=== PATIENT | male | born 1980 | race Caucasian/White ===

== ENCOUNTER 2017-01-17 06:55 | Day surgery (SDC) | payer MEDICAID ==
[~2017-01-17] VITALS: Ht 182.9 cm; Wt 88.5 kg
[2017-01-17] MEDS ORDERED: CYCLOPENTOLATE HCL 1% OPHTH DROPS 2ML RIGHTEYE ONE (07:45)
[2017-01-17] MEDS ORDERED: PHENYLEPHRINE HCL 10% OPHTH DROPS 5ML RIGHTEYE ONE (07:45)
[2017-01-17] MEDS ORDERED: TETRACAINE 0.5% OPHTH DROPS 4ML ONE (08:06)
[2017-01-17] MEDS ORDERED: CYCLOPENTOLATE HCL 1% OPHTH DROPS 2ML ONE (08:06)
[2017-01-17] MEDS ORDERED: LIDOCAINE HCL/PF 2% 20 MG/ML 10ML VIAL ONE (08:06)
[2017-01-17] MEDS ORDERED: BALANCED SALT IRRIG SOLN 15ML ONE (08:06)
[2017-01-17] MEDS ORDERED: PHENYLEPHRINE HCL 10% OPHTH DROPS 5ML ONE (08:06)
[2017-01-17] MEDS ORDERED: PREDNISOLONE ACETATE 1% OPHTH DROPS 1ML ONE (08:06)
[2017-01-17] MEDS ORDERED: TROPICAMIDE 1% OPHTH DROPS 15ML ONE (08:06)
[2017-01-17] MEDS ORDERED: CIPROFLOXACIN 0.3% OPHTH SOLN 2.5ML ONE (08:06)
[2017-01-17] MEDS ORDERED: NEO/POLYMYX B SULF/DEXAMETH OPHTH OINT 3.5GM ONE (08:06)
[2017-01-17] MEDS ORDERED: BALANCED SALT IRRIG SOLN COMB1 500ML OP ONE (08:10)
[2017-01-17] MEDS: SODIUM CHLORIDE 0.9% 1,000 ML IV SCH ×2 (08:22→09:17)
[2017-01-17] MEDS ORDERED: HYALURONATE SODIUM 14 MG/ML 0.85ML SYRINGE IO ONE ×2 (09:05→09:06)
[2017-01-17] MEDS ORDERED: TROPICAMIDE 1% OPHTH DROPS 15ML RIGHTEYE ONE (09:15)
[2017-01-17] MEDS ORDERED: HUMULOG SUBCUT ×3 (09:27)
[2017-01-17] MEDS ORDERED: INSU3INS6 SUBCUT (09:27)
[2017-01-17] MEDS ORDERED: ONDANSETRON HCL 4MG/2ML VIAL IV PRN (09:30)
[2017-01-17] MEDS ORDERED: FENTANYL CITRATE/PF 50MCG/ML 2ML VIAL IV PRN (09:30)
== END 2017-01-17 12:15 | disposition home or self-care (01) ==
LOC: OR 06:55
PROVIDERS: ATTEND Ophthalmology
DX: H25.89 Other age-related cataract (principal); E10.69 Type 1 diabetes mellitus with other specified complication
CPT/HCPCS: 66984; 82962; J3490; J7030; V2632

== ENCOUNTER 2017-06-07 08:58 | Inpatient (IN) | payer MEDICAID ==
[~2017-06-07] VITALS: Ht 182.9 cm; Wt 81.6 kg
[~2017-06-07 08:58] MED LIST: HUMULOG SUBCUT; INSU3INS6 SUBCUT
[2017-06-07] MEDS ORDERED: INSULIN REGULAR (HUMULIN R) UD 100 UNITS/ML SYR SUBCUT ONE (10:00)
[2017-06-07] MEDS ORDERED: SODIUM CHLORIDE 0.9% 1,000 ML IV SCH (10:15)
[2017-06-07] MEDS ORDERED: INSU100I24 SQ (11:39)
[2017-06-07] MEDS ORDERED: CLONIDINE 0.1MG TABLET PO PRN (11:45)
[2017-06-07] MEDS ORDERED: DEXTROSE 50% WATER 50ML SYRINGE IV PRN (11:45)
[2017-06-07] MEDS ORDERED: HYDROCODONE/ACETAMINOPHEN 5/325MG TABLET PO PRN (11:45)
[2017-06-07] MEDS ORDERED: DIPHENHYDRAMINE 50MG/ML VIAL IV PRN (11:45)
[2017-06-07] MEDS ORDERED: ACETAMINOPHEN 325MG TABLET PO PRN (11:45)
[2017-06-07] MEDS ORDERED: ONDANSETRON HCL 4MG/2ML VIAL IV PRN (11:45)
[2017-06-07] MEDS ORDERED: IPRATROPIUM/ALBUTEROL 0.5-3(2.5)MG/3ML NEB INH PRN (11:45)
[2017-06-07 14:16] VITALS: BP 117/77
[2017-06-07] MEDS: SODIUM CHLORIDE 0.9% 1,000 ML IV SCH (16:43)
[2017-06-07] MEDS ORDERED: INSULIN LISPRO 100 UNITS/ML SUBCUT SCH ×2 (17:40)
[2017-06-07] MEDS: INSULIN LISPRO 100 UNITS/ML SUBCUT SCH ×2 (17:40→22:19)
[2017-06-07] MEDS: BLOOD SUGAR DIAGNOSTIC STRIP TEST SCH ×2 (17:48→21:00)
[2017-06-07 20:00] VITALS: BP 117/68
[2017-06-07] MEDS ORDERED: INSULIN DETEMIR UD 100 UNITS/ML SYR SUBCUT SCH (22:00)
[2017-06-08] VITALS: BP 117/75
[2017-06-08 04:00] VITALS: BP 136/73
[2017-06-08 06:09] LABS: BASOPHILS % 1.6 % (0.0-2.0); EOSINOPHILS % 4.5 % (0.0-5.0); HEMATOCRIT. 36.5 % (42.0-52.0); HEMOGLOBIN. 12.5 g/dL (14.0-18.0); LYMPHOCYTES % 45.6 % (20.0-50.0); MEAN CORPUSCULAR HEMOGLOBIN 30.4 pg (28.0-32.0); MEAN CORPUSCULAR VOLUME 88.8 fL (80.0-94.0); MONOCYTES % 8.5 % (2.0-8.0); NEUTROPHILS % 39.8 % (40.0-76.0); PLATELET 166 x1000/uL (130-400); RED BLOOD CELL COUNT 4.11 mill/uL (4.7-6.1); RED CELL DISTRIBUTION WIDTH 12.9 % (11.6-14.6)
[2017-06-08] MEDS: SODIUM CHLORIDE 0.9% 1,000 ML IV SCH ×2 (06:34→17:20)
[2017-06-08] MEDS: BLOOD SUGAR DIAGNOSTIC STRIP TEST SCH ×4 (06:38→21:33)
[2017-06-08] MEDS: INSULIN LISPRO 100 UNITS/ML SUBCUT SCH ×4 (06:46→21:47)
[2017-06-08 07:38] LABS: CHLORIDE 104 mEq/L (98-107); HDL CHOLESTEROL 41 mg/dL (40-59); LDL CHOLESTEROL 70 mg/dL (5-100)
[2017-06-08 07:39] LABS: CARBON DIOXIDE 27 mEq/L (21-32)
[2017-06-08 08:00] VITALS: BP 117/69
[2017-06-08 12:00] VITALS: BP 114/70
[2017-06-08] MEDS ORDERED: DEXAMETHASONE 4MG/ML 1ML VIAL ONE ×2 (12:58→14:16)
[2017-06-08] MEDS ORDERED: LIDOCAINE HCL 1% 20ML VIAL (Pyxis) INJ ONE (12:58)
[2017-06-08] MEDS ORDERED: BUPIVACAINE HCL 0.5% (5MG/ML) 50ML ONE (12:59)
[2017-06-08] MEDS ORDERED: NORMAL SALINE 0.9% 10 ML SYR ONE (12:59)
[2017-06-08] MEDS ORDERED: BACITRACIN 50,000 UNITS/VIAL ONE (12:59)
[2017-06-08] MEDS ORDERED: LEVOFLOXACIN 500MG PREMIX 100 ML IV ONE (14:16)
[2017-06-08] MEDS ORDERED: METOCLOPRAMIDE HCL 10MG/2ML VIAL ONE (14:16)
[2017-06-08] MEDS ORDERED: ONDANSETRON HCL 4MG/2ML VIAL IV PRN (14:30)
[2017-06-08] MEDS ORDERED: MEPERIDINE HCL/PF 25MG/ML CPJ IV PRN (14:30)
[2017-06-08] MEDS ORDERED: LABETALOL HCL 20MG/4ML CARPUJECT IV PRN (14:30)
[2017-06-08] MEDS ORDERED: HYDROMORPHONE HCL/PF 2MG/ML CPJ IV PRN (14:30)
[2017-06-08] MEDS: CEFAZOLIN 1000MG PREMIX 50 ML IV SCH ×2 (17:20→21:46)
[2017-06-08 20:00] VITALS: BP 125/69
[2017-06-08] MEDS ORDERED: INSULIN LISPRO 100 UNITS/ML SUBCUT NR (21:39)
[2017-06-08] MEDS ORDERED: DEXTROSE 50% WATER 50ML SYRINGE IV PRN (21:45)
[2017-06-09] VITALS: BP 98/52
[2017-06-09 04:00] VITALS: BP 115/63
[2017-06-09] MEDS: CEFAZOLIN 1000MG PREMIX 50 ML IV SCH (05:27)
[2017-06-09] MEDS: BLOOD SUGAR DIAGNOSTIC STRIP TEST SCH ×2 (06:03→11:14)
[2017-06-09] MEDS: INSULIN LISPRO 100 UNITS/ML SUBCUT SCH ×2 (06:35→11:49)
[2017-06-09] MEDS ORDERED: BLOOD SUGAR DIAGNOSTIC STRIP TEST SCH (07:10)
[2017-06-09 08:00] VITALS: BP 127/65
[2017-06-09 12:00] VITALS: BP 138/72
[2017-06-09 13:12] VITALS: BP 139/72
== END 2017-06-09 14:15 | disposition home or self-care (01) | DRG 314 ==
LOC: OR 08:58 → 8WST 08:59
PROVIDERS: ADMIT Internal Medicine; ATTEND Internal Medicine
PROC: 0Y6R0Z0 Detachment at Right 2nd Toe, Complete, Open Approach (ICD-10-PCS; principal; 2017-06-08 13:30)
DX: E11.69 Type 2 diabetes mellitus with other specified complication (principal); E11.40 Type 2 diabetes mellitus with diabetic neuropathy, unspecified; E11.65 Type 2 diabetes mellitus with hyperglycemia; M86.8X7 Other osteomyelitis, ankle and foot; E44.1 Mild protein-calorie malnutrition; I10 Essential (primary) hypertension; E78.5 Hyperlipidemia, unspecified; M20.40 Other hammer toe(s) (acquired), unspecified foot; L97.519 Non-pressure chronic ulcer of other part of right foot with unspecified severity; E11.621 Type 2 diabetes mellitus with foot ulcer
CPT/HCPCS: 36415; 73721; 80053; 80061; 82962; 85025; 87040; 87086; 88305; 88311; 97116; 97162; 97535; A4216; J0690; J1100; J1815; J1956; J2765; J3490; J7030